=== PATIENT | female | born 1945 | race Caucasian/White ===

== ENCOUNTER 2018-01-02 03:10 | Outpatient (RCR) | payer MEDICARE, SELFPAY ==
[2018-01-02] MEDS: Normal Saline Flush 10 ML SYR IVP (09:00)
[2018-01-02 09:33] LABS: Abs Immature Grans 0.92 k/cumm (0.0-0.09); HCT 30.6 % (36.0-46.0); HGB 9.8 g/dL (12.0-15.5); Mean Corpuscular Hemoglobin 29.3 pg (27.0-33.0); Mean Corpuscular Volume 91.3 fL (80-95); Mean Platelet Volume 9.7 fL (8.0-11.0); Platelet Count 218 x1000/uL (130-400); RBC 3.35 m/cumm (4.00-5.20); RBC Distribution Width 18.6 % (11.7-14.6)
[2018-01-02 09:45] LABS: ALT 21 U/L (12-78); AST 18 U/L (15-37); Albumin 3.4 g/dL (3.4-5.0); Alkaline Phosphatase 79 U/L (46-116); Anion Gap 9.6 mmol/L (3-11); BUN 9 mg/dL (7-18); Bilirubin, Total 0.2 mg/dL (0.2-1.0); CO2 27.4 mmol/L (21.0-32.0); CREATININE 0.88 mg/dL (0.55-1.02); Calcium 8.6 mg/dL (8.5-10.1); Chloride 106 mmol/L (98-107); Glucose 80 mg/dL (70-100); Potassium 3.9 mmol/L (3.5-5.1); Sodium 143 mmol/L (136-145); Total Protein 6.4 g/dL (6.4-8.2)
[2018-01-02 09:54] LABS: Absolute Lymphocyte Count 0.63 k/cumm (1.2-3.4); Absolute Monocyte Count 0.42 k/cumm (0.11-0.7); Absolute Neutrophil Count 5.18 k/cumm (1.2-6.7); Atypical Lymphocytes % 3
[2018-01-02 09:55] LABS: Diff Comment Manual Differential; Nucleated RBC 1 /100WBC
[2018-01-02 09:56] LABS: Anisocytosis 1+; Basophilic Stippling Present; Macrocytosis 1+; Polychromasia Present
[2018-01-16] MEDS: Normal Saline Flush 10 ML SYR IVP (08:35)
[2018-01-16 08:43] LABS: Abs Immature Grans 0.41 k/cumm (0.0-0.09); HCT 31.4 % (36.0-46.0); Mean Corp. HGB Concentration 31.8 g/dL (32.0-36.0); Mean Corpuscular Hemoglobin 30.2 pg (27.0-33.0); Mean Corpuscular Volume 94.9 fL (80-95); Mean Platelet Volume 8.8 fL (8.0-11.0); Platelet Count 222 x1000/uL (130-400); RBC 3.31 m/cumm (4.00-5.20); RBC Distribution Width 21.5 % (11.7-14.6); White Blood Cell Count 4.47 k/cumm (4.4-10.8)
[2018-01-16 08:56] LABS: ALT 22 U/L (12-78); AST 18 U/L (15-37); Albumin 3.5 g/dL (3.4-5.0); Alkaline Phosphatase 83 U/L (46-116); Anion Gap 5.4 mmol/L (3-11); BUN 12 mg/dL (7-18); Bilirubin, Total 0.2 mg/dL (0.2-1.0); CO2 29.6 mmol/L (21.0-32.0); CREATININE 0.78 mg/dL (0.55-1.02); Calcium 8.7 mg/dL (8.5-10.1); Chloride 107 mmol/L (98-107); Glucose 86 mg/dL (70-100); Potassium 4.3 mmol/L (3.5-5.1); Sodium 142 mmol/L (136-145); Total Protein 6.7 g/dL (6.4-8.2)
[2018-01-16 09:05] LABS: Absolute Basophil Count 0.04 k/cumm (0.0-0.2); Absolute Lymphocyte Count 0.22 k/cumm (1.2-3.4); Absolute Monocyte Count 0.27 k/cumm (0.11-0.7); Absolute Neutrophil Count 3.44 k/cumm (1.2-6.7); Atypical Lymphocytes % 1; Diff Comment Manual Differential; Nucleated RBC 3 /100WBC
[2018-01-16 09:06] LABS: Anisocytosis 2+; Poikilocytes 1+; Polychromasia Present
[2018-01-23] MEDS: Normal Saline Flush 10 ML SYR IVP (09:05)
[2018-01-23 09:19] LABS: Abs Immature Grans 0.05 k/cumm (0.0-0.09); Absolute Basophil Count 0.03 k/cumm (0.0-0.2); Absolute Eosinophil Count 0.01 k/cumm (0.0-0.7); Absolute Lymphocyte Count 0.39 k/cumm (1.2-3.4); Absolute Neutrophil Count 2.66 k/cumm (1.2-6.7); Basophils % 0.8; Eosinophils % 0.3; HCT 29.7 % (36.0-46.0); HGB 9.6 g/dL (12.0-15.5); Immature Grans % 1.4; Lymphocytes % 10.7; Mean Corp. HGB Concentration 32.3 g/dL (32.0-36.0); Mean Corpuscular Hemoglobin 30.8 pg (27.0-33.0); Mean Corpuscular Volume 95.2 fL (80-95); Mean Platelet Volume 9.4 fL (8.0-11.0); Monocytes % 13.7; Neutrophils % 73.1; Platelet Count 340 x1000/uL (130-400); RBC 3.12 m/cumm (4.00-5.20); RBC Distribution Width 20.9 % (11.7-14.6); White Blood Cell Count 3.64 k/cumm (4.4-10.8)
[2018-01-23 09:37] LABS: ALT 57 U/L (12-78); AST 36 U/L (15-37); Albumin 3.4 g/dL (3.4-5.0); Alkaline Phosphatase 65 U/L (46-116); Anion Gap 4.1 mmol/L (3-11); BUN 13 mg/dL (7-18); Bilirubin, Total 0.3 mg/dL (0.2-1.0); CO2 28.9 mmol/L (21.0-32.0); Calcium 8.7 mg/dL (8.5-10.1); Chloride 106 mmol/L (98-107); Glucose 99 mg/dL (70-100); Potassium 4.1 mmol/L (3.5-5.1); Sodium 139 mmol/L (136-145); Total Protein 6.8 g/dL (6.4-8.2)
== END 2018-01-24 ==
LOC: INF 03:30
PROVIDERS: PCP Internal Medicine; Visit Provider Internal Medicine Medical Oncology
DX: C50.412 Malignant neoplasm of upper-outer quadrant of left female breast (principal); Z17.1 Estrogen receptor negative status [ER-]; Z45.2 Encounter for adjustment and management of vascular access device
CPT/HCPCS: 36591 ×3; 80053; 85025

== ENCOUNTER 2018-02-20 01:36 | Outpatient (RCR) | payer MEDICARE, SELFPAY ==
[2018-01-30] MEDS: Normal Saline Flush 10 ML SYR IVP (09:00)
[2018-01-30 09:18] LABS: Abs Immature Grans 0.01 k/cumm (0.0-0.09); Absolute Basophil Count 0.03 k/cumm (0.0-0.2); Absolute Eosinophil Count 0.04 k/cumm (0.0-0.7); Absolute Lymphocyte Count 0.31 k/cumm (1.2-3.4); Absolute Monocyte Count 0.36 k/cumm (0.11-0.7); Absolute Neutrophil Count 2.35 k/cumm (1.2-6.7); Eosinophils % 1.3; HCT 28.9 % (36.0-46.0); HGB 9.2 g/dL (12.0-15.5); Immature Grans % 0.3; Mean Corp. HGB Concentration 31.8 g/dL (32.0-36.0); Mean Corpuscular Volume 97.3 fL (80-95); Mean Platelet Volume 9.2 fL (8.0-11.0); Monocytes % 11.6; Neutrophils % 75.8; Platelet Count 224 x1000/uL (130-400); RBC 2.97 m/cumm (4.00-5.20); RBC Distribution Width 21.2 % (11.7-14.6)
[2018-01-30 09:37] LABS: ALT 36 U/L (12-78); AST 21 U/L (15-37); Albumin 3.2 g/dL (3.4-5.0); Alkaline Phosphatase 64 U/L (46-116); Anion Gap 6.6 mmol/L (3-11); BUN 11 mg/dL (7-18); Bilirubin, Total 0.3 mg/dL (0.2-1.0); CO2 26.4 mmol/L (21.0-32.0); CREATININE 0.78 mg/dL (0.55-1.02); Calcium 8.6 mg/dL (8.5-10.1); Chloride 106 mmol/L (98-107); Glucose 86 mg/dL (70-100); Sodium 139 mmol/L (136-145); Total Protein 6.5 g/dL (6.4-8.2)
[2018-02-06] MEDS: Normal Saline Flush 10 ML SYR IVP (08:45)
[2018-02-06 09:13] LABS: Abs Immature Grans 0.01 k/cumm (0.0-0.09); Absolute Basophil Count 0.01 k/cumm (0.0-0.2); Absolute Monocyte Count 0.24 k/cumm (0.11-0.7); Absolute Neutrophil Count 1.67 k/cumm (1.2-6.7); Basophils % 0.4; Eosinophils % 8.2; HCT 28.2 % (36.0-46.0); HGB 9.1 g/dL (12.0-15.5); Immature Grans % 0.4; Lymphocytes % 12.3; Mean Corp. HGB Concentration 32.3 g/dL (32.0-36.0); Mean Corpuscular Hemoglobin 32.3 pg (27.0-33.0); Mean Platelet Volume 10.1 fL (8.0-11.0); Monocytes % 9.9; Neutrophils % 68.8; Platelet Count 213 x1000/uL (130-400); RBC 2.82 m/cumm (4.00-5.20); RBC Distribution Width 20.7 % (11.7-14.6); White Blood Cell Count 2.43 k/cumm (4.4-10.8)
[2018-02-06 09:27] LABS: Anisocytosis 2+; Diff Comment RBC Morph Reviewed
[2018-02-06 09:28] LABS: ALT 34 U/L (12-78); AST 24 U/L (15-37); Albumin 3.1 g/dL (3.4-5.0); Alkaline Phosphatase 61 U/L (46-116); Anion Gap 9.7 mmol/L (3-11); BUN 10 mg/dL (7-18); Basophilic Stippling Present; Bilirubin, Total 0.4 mg/dL (0.2-1.0); CO2 26.3 mmol/L (21.0-32.0); CREATININE 0.72 mg/dL (0.55-1.02); Calcium 8.4 mg/dL (8.5-10.1); Chloride 107 mmol/L (98-107); Glucose 109 mg/dL (70-100); Hypochromasia 1+; Polychromasia Present; Potassium 3.7 mmol/L (3.5-5.1); Sodium 143 mmol/L (136-145); Total Protein 6.4 g/dL (6.4-8.2)
[2018-02-13] MEDS: Normal Saline Flush 10 ML SYR IVP (09:10)
[2018-02-13 09:25] LABS: Abs Immature Grans 0.01 k/cumm (0.0-0.09); Absolute Basophil Count 0.01 k/cumm (0.0-0.2); Absolute Eosinophil Count 0.16 k/cumm (0.0-0.7); Absolute Lymphocyte Count 0.26 k/cumm (1.2-3.4); Absolute Monocyte Count 0.24 k/cumm (0.11-0.7); Absolute Neutrophil Count 2.23 k/cumm (1.2-6.7); Basophils % 0.3; Eosinophils % 5.5; HCT 27.6 % (36.0-46.0); HGB 8.8 g/dL (12.0-15.5); Immature Grans % 0.3; Lymphocytes % 8.9; Mean Corp. HGB Concentration 31.9 g/dL (32.0-36.0); Mean Corpuscular Hemoglobin 31.9 pg (27.0-33.0); Mean Platelet Volume 8.8 fL (8.0-11.0); Monocytes % 8.2; Neutrophils % 76.8; Platelet Count 208 x1000/uL (130-400); RBC 2.76 m/cumm (4.00-5.20); RBC Distribution Width 19.3 % (11.7-14.6); White Blood Cell Count 2.91 k/cumm (4.4-10.8)
[2018-02-13 09:37] LABS: Anisocytosis 1+; Diff Comment RBC Morph Reviewed
[2018-02-13 09:38] LABS: ALT 29 U/L (12-78); AST 20 U/L (15-37); Albumin 3.1 g/dL (3.4-5.0); Alkaline Phosphatase 67 U/L (46-116); Anion Gap 8.1 mmol/L (3-11); BUN 12 mg/dL (7-18); Bilirubin, Total 0.3 mg/dL (0.2-1.0); CO2 26.9 mmol/L (21.0-32.0); CREATININE 0.77 mg/dL (0.55-1.02); Calcium 8.4 mg/dL (8.5-10.1); Chloride 107 mmol/L (98-107); Glucose 95 mg/dL (70-100); Sodium 142 mmol/L (136-145); Total Protein 6.4 g/dL (6.4-8.2)
[2018-02-20] MEDS: Normal Saline Flush 10 ML SYR IVP (08:50)
[2018-02-20 09:09] LABS: Abs Immature Grans 0.01 k/cumm (0.0-0.09); Absolute Basophil Count 0.01 k/cumm (0.0-0.2); Absolute Eosinophil Count 0.09 k/cumm (0.0-0.7); Absolute Lymphocyte Count 0.22 k/cumm (1.2-3.4); Absolute Monocyte Count 0.19 k/cumm (0.11-0.7); Absolute Neutrophil Count 2.27 k/cumm (1.2-6.7); Basophils % 0.4; Eosinophils % 3.2; HCT 28.2 % (36.0-46.0); Immature Grans % 0.4; Lymphocytes % 7.9; Mean Corp. HGB Concentration 31.9 g/dL (32.0-36.0); Mean Corpuscular Hemoglobin 32.6 pg (27.0-33.0); Mean Corpuscular Volume 102.2 fL (80-95); Mean Platelet Volume 9.4 fL (8.0-11.0); Monocytes % 6.8; Neutrophils % 81.3; Platelet Count 236 x1000/uL (130-400); RBC 2.76 m/cumm (4.00-5.20); RBC Distribution Width 18.2 % (11.7-14.6); White Blood Cell Count 2.79 k/cumm (4.4-10.8)
[2018-02-20 09:22] LABS: ALT 26 U/L (12-78); AST 23 U/L (15-37); Albumin 3.1 g/dL (3.4-5.0); Alkaline Phosphatase 71 U/L (46-116); Anion Gap 8.2 mmol/L (3-11); BUN 8 mg/dL (7-18); Bilirubin, Total 0.4 mg/dL (0.2-1.0); CO2 26.8 mmol/L (21.0-32.0); CREATININE 0.87 mg/dL (0.55-1.02); Calcium 8.7 mg/dL (8.5-10.1); Chloride 103 mmol/L (98-107); Glucose 106 mg/dL (70-100); Potassium 3.9 mmol/L (3.5-5.1); Sodium 138 mmol/L (136-145); Total Protein 6.4 g/dL (6.4-8.2)
== END 2018-02-23 23:59 | disposition home or self-care (01) ==
LOC: INF 01:36
PROVIDERS: PCP Internal Medicine; Visit Provider Internal Medicine Medical Oncology
DX: C50.412 Malignant neoplasm of upper-outer quadrant of left female breast (principal); Z17.1 Estrogen receptor negative status [ER-]
CPT/HCPCS: 36591; 80053; 85025

== ENCOUNTER 2018-03-20 00:52 | Outpatient (RCR) | payer MEDICARE, SELFPAY ==
[2018-02-27 09:22] LABS: Abs Immature Grans 0.01 k/cumm (0.0-0.09); Absolute Eosinophil Count 0.06 k/cumm (0.0-0.7); Absolute Lymphocyte Count 0.17 k/cumm (1.2-3.4); Absolute Monocyte Count 0.14 k/cumm (0.11-0.7); Absolute Neutrophil Count 1.69 k/cumm (1.2-6.7); Eosinophils % 2.9; HCT 25.9 % (36.0-46.0); HGB 8.3 g/dL (12.0-15.5); Immature Grans % 0.5; Lymphocytes % 8.2; Mean Corpuscular Hemoglobin 32.9 pg (27.0-33.0); Mean Corpuscular Volume 102.8 fL (80-95); Mean Platelet Volume 8.9 fL (8.0-11.0); Monocytes % 6.8; Neutrophils % 81.6; Platelet Count 250 x1000/uL (130-400); RBC 2.52 m/cumm (4.00-5.20); RBC Distribution Width 17.4 % (11.7-14.6); White Blood Cell Count 2.07 k/cumm (4.4-10.8)
[2018-02-27 09:49] LABS: ALT 24 U/L (12-78); AST 17 U/L (15-37); Albumin 2.9 g/dL (3.4-5.0); Alkaline Phosphatase 57 U/L (46-116); Anion Gap 8.7 mmol/L (3-11); BUN 9 mg/dL (7-18); Bilirubin, Total 0.3 mg/dL (0.2-1.0); CO2 27.3 mmol/L (21.0-32.0); CREATININE 0.81 mg/dL (0.55-1.02); Chloride 106 mmol/L (98-107); Glucose 114 mg/dL (70-100); Potassium 3.4 mmol/L (3.5-5.1); Sodium 142 mmol/L (136-145)
[2018-02-27] MEDS: Normal Saline Flush 10 ML SYR IVP (14:03)
[2018-03-06] MEDS: Normal Saline Flush 10 ML SYR IVP (09:03)
[2018-03-06 09:09] LABS: Abs Immature Grans 0.02 k/cumm (0.0-0.09); Absolute Basophil Count 0.01 k/cumm (0.0-0.2); Absolute Eosinophil Count 0.06 k/cumm (0.0-0.7); Absolute Lymphocyte Count 0.25 k/cumm (1.2-3.4); Absolute Monocyte Count 0.21 k/cumm (0.11-0.7); Absolute Neutrophil Count 1.62 k/cumm (1.2-6.7); Basophils % 0.5; Eosinophils % 2.8; HCT 27.7 % (36.0-46.0); HGB 8.8 g/dL (12.0-15.5); Immature Grans % 0.9; Lymphocytes % 11.5; Mean Corp. HGB Concentration 31.8 g/dL (32.0-36.0); Mean Corpuscular Hemoglobin 32.8 pg (27.0-33.0); Mean Corpuscular Volume 103.4 fL (80-95); Mean Platelet Volume 8.9 fL (8.0-11.0); Monocytes % 9.7; Neutrophils % 74.6; Platelet Count 297 x1000/uL (130-400); RBC 2.68 m/cumm (4.00-5.20); RBC Distribution Width 16.5 % (11.7-14.6); White Blood Cell Count 2.17 k/cumm (4.4-10.8)
[2018-03-06 09:21] LABS: ALT 23 U/L (12-78); AST 20 U/L (15-37); Alkaline Phosphatase 61 U/L (46-116); Anion Gap 8.5 mmol/L (3-11); BUN 9 mg/dL (7-18); Bilirubin, Total 0.4 mg/dL (0.2-1.0); CO2 27.5 mmol/L (21.0-32.0); CREATININE 0.86 mg/dL (0.55-1.02); Chloride 104 mmol/L (98-107); Glucose 105 mg/dL (70-100); Potassium 3.7 mmol/L (3.5-5.1); Sodium 140 mmol/L (136-145); Total Protein 6.4 g/dL (6.4-8.2)
[2018-03-06 11:32] LABS: Ferritin 240 ng/mL (8-388); Folate 12.9 ng/mL (8.6-20.0); Vitamin B12 458 pg/mL (193-986)
[2018-03-13] MEDS: Normal Saline Flush 10 ML SYR IVP (09:25)
[2018-03-13 10:11] LABS: Abs Immature Grans 0.01 k/cumm (0.0-0.09); Absolute Basophil Count 0.01 k/cumm (0.0-0.2); Absolute Eosinophil Count 0.08 k/cumm (0.0-0.7); Absolute Lymphocyte Count 0.32 k/cumm (1.2-3.4); Absolute Monocyte Count 0.53 k/cumm (0.11-0.7); Absolute Neutrophil Count 1.83 k/cumm (1.2-6.7); Basophils % 0.4; Eosinophils % 2.9; HCT 29.6 % (36.0-46.0); HGB 9.1 g/dL (12.0-15.5); Immature Grans % 0.4; Lymphocytes % 11.5; Mean Corp. HGB Concentration 30.7 g/dL (32.0-36.0); Mean Corpuscular Hemoglobin 31.2 pg (27.0-33.0); Mean Corpuscular Volume 101.4 fL (80-95); Mean Platelet Volume 9.3 fL (8.0-11.0); Monocytes % 19.1; Neutrophils % 65.7; Platelet Count 337 x1000/uL (130-400); RBC 2.92 m/cumm (4.00-5.20); RBC Distribution Width 16.6 % (11.7-14.6); White Blood Cell Count 2.78 k/cumm (4.4-10.8)
[2018-03-13 10:23] LABS: ALT 25 U/L (12-78); AST 24 U/L (15-37); Alkaline Phosphatase 67 U/L (46-116); Anion Gap 9.6 mmol/L (3-11); BUN 9 mg/dL (7-18); Bilirubin, Total 0.3 mg/dL (0.2-1.0); CO2 27.4 mmol/L (21.0-32.0); CREATININE 0.86 mg/dL (0.55-1.02); Calcium 8.9 mg/dL (8.5-10.1); Chloride 107 mmol/L (98-107); Glucose 94 mg/dL (70-100); Potassium 3.7 mmol/L (3.5-5.1); Sodium 144 mmol/L (136-145)
== END 2018-03-26 23:59 | disposition home or self-care (01) ==
LOC: INF 00:52
PROVIDERS: PCP Internal Medicine; Visit Provider Internal Medicine Medical Oncology
DX: C50.412 Malignant neoplasm of upper-outer quadrant of left female breast (principal); Z17.1 Estrogen receptor negative status [ER-]; Z45.2 Encounter for adjustment and management of vascular access device
CPT/HCPCS: 36591; 80053; 82607; 82728; 82746; 85025

== ENCOUNTER 2020-12-05 03:15 | Outpatient (CLI) | payer MEDICARE, SELFPAY ==
[2020-12-05 12:13] LABS: Abs Immature Grans 0.01 10^3/uL (0.0-0.06); Absolute Basophil Count 0.02 10^3/uL (0.0-0.2); Absolute Eosinophil Count 0.07 10^3/uL (0.0-0.7); Absolute Lymphocyte Count 1.33 10^3/uL (1.2-3.4); Absolute Neutrophil Count 3.99 10^3/uL (1.2-6.7); Basophils % 0.3; Eosinophils % 1.2; HCT 39.8 % (36.0-46.0); HGB 12.9 g/dL (11.2-15.7); Immature Grans % 0.2; Lymphocytes % 22.1; MCH 30.4 pg (27.0-33.0); MCHC 32.4 % (32.0-36.0); MCV 93.9 fL (80-95); MPV 9.7 fL (8.0-11.0); Neutrophils % 66.2; Nucleated RBC 0 %; Platelet Count 193 10^3/uL (130-400); RBC 4.24 10^6/uL (3.93-5.22); RDW 12.7 % (11.7-14.6); RDW-SD 43.5 fL; WBC 6.02 10^3/uL (4.4-10.8)
[2020-12-05 12:26] LABS: ALT 18 U/L (14-59); AST 16 U/L (15-37); Albumin 3.7 g/dL (3.4-5.0); Alkaline Phosphatase 54 U/L (46-116); Anion Gap 8.2 mmol/L (3-11); BUN 14 mg/dL (7-18); Bilirubin, Total 0.3 mg/dL (0.2-1.0); CO2 26.8 mmol/L (21.0-32.0); CREATININE 1.2 mg/dL (0.55-1.02); Calcium 9.2 mg/dL (8.5-10.1); Chloride 107 mmol/L (98-107); Estimated GFR 43.56 (mL/min/1.73m2); Glucose 98 mg/dL (74-106); Potassium 4.1 mmol/L (3.5-5.1); Sodium 142 mmol/L (136-145); Total Protein 6.7 g/dL (6.4-8.2)
== END 2020-12-05 03:16 | disposition home or self-care (01) ==
LOC: LBO 03:15
PROVIDERS: PCP Internal Medicine; Visit Provider Nurse Practitioner Family
DX: C50.412 Malignant neoplasm of upper-outer quadrant of left female breast (principal); Z17.1 Estrogen receptor negative status [ER-]
CPT/HCPCS: 36415; 80053; 85025